=== PATIENT | male | born 1990 | race Caucasian/White ===

== ENCOUNTER 2018-12-17 06:14 | Emergency (ER) | payer BC ==
[~2018-12-17] VITALS: Ht 172.7 cm; Wt 78.0 kg
[2018-12-17 06:18] VITALS: Ht 172.7 cm; Wt 78.0 kg
[2018-12-17 07:23] VITALS: BP 150/97
== END 2018-12-17 07:23 | disposition home or self-care (01) ==
LOC: ED 06:14
DX: S60.221A Contusion of right hand, initial encounter (principal); Y04.1XXA Assault by human bite, initial encounter; Y93.89 Activity, other specified; Y92.89 Other specified places as the place of occurrence of the external cause; Y99.8 Other external cause status
CPT/HCPCS: 90715; A4570